=== PATIENT | male | born 1955 | race Caucasian/White ===

== ENCOUNTER → 2024-06-10 16:33 | Outpatient (REF) | payer MEDICARE, OTHER, SELFPAY | LOC: PAVMRI 16:33 | PROVIDERS: ATTENDING PHYSICIAN Physician Assistant Surgical; FAMILY PHYSICIAN Family Medicine | DX: M25.562 Pain in left knee (principal) | CPT/HCPCS: 73721 ==

== ENCOUNTER 2024-09-16 10:25 | Inpatient (IN) | payer MEDICARE, OTHER, SELFPAY ==
[2024-09-02 13:45] VITALS: BMI 35.5
[2024-09-02 14:27] LABS: Hematocrit 45.5 % (39.0-52.0); Hemoglobin 14.8 g/dL (13.0-18.0); Mean Corp Hgb Conc. 32.5 g/dL (33.0-37.0); Mean Corpuscular Hgb 28.8 pg (27.0-31.0); Mean Corpuscular Volume 88.7 fL (80.0-94.0); Mean Platelet Volume 11.2 fL (7.4-10.4); Platelet Count 213 10^3/uL (130-400); Red Blood Cell Count 5.13 10^6/uL (4.70-6.10); Red Cell Dist. Width 13.1 % (11.5-14.5); White Blood Cell Count 11.5 10^3/uL (4.8-10.8)
[2024-09-02 14:35] LABS: ALT (SGPT) 20 U/L (0-50); AST (SGOT) 17 U/L (17-59); Albumin 4.5 g/dl (3.5-5.0); Alkaline Phosphatase 69 U/L (38-126); Blood Urea Nitrogen 21 mg/dl (9-20); Calcium 9.3 mg/dl (8.4-10.2); Carbon Dioxide 31 mmol/L (22-30); Chloride 99 mmol/L (98-107); Estimated Creatinine Clearance 95 ml/min; Glucose 110 mg/dl (70-99); Potassium 4.2 mmol/L (3.5-5.1); Sodium 138 mmol/L (135-145); Total Bilirubin 0.6 mg/dl (0.2-1.3); Total Protein 6.8 g/dl (6.3-8.2); eGFR > 60.00
[2024-09-10 09:36] VITALS: BMI 35.5
[2024-09-16] VITALS (12 sets, daily range): BP systolic 114–152; BP diastolic 62–89; PULSE 59; O2SAT 100
[2024-09-16] MEDS: CELEBREX 200 MG PO (11:08)
[2024-09-16] MEDS: TYLENOL 650 MG PO ×2 (11:08→17:15)
[2024-09-16] MEDS: NORMOSOL-R/PLASMALYTE-A 1000 IV ×2 (11:26→15:44)
--- NOTE | 2024-09-16 14:29 | W.PN.UPDATE ---
Update Note
Progress Note Update
L TKA Dr. Harrison 09/16/24
DVT ppx-ASA
Agarwal's/GERD
HTN
HLD
B12 deficiency
Borderline DM
Obesity 35.5 BMI
Thoracic Aortic dissection-s/p repair 2016
--- NOTE | 2024-09-16 14:40 | W.DS.TRANS ---
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
-
Discharge Instructions:
Discharge Diagnosis/Procedures L TKA 09/16/24
Diet As tolerated,Diabetic, Carb Controlled
Activity With Walker
Driving Restrictions No driving
Bathing Restrictions OK to Shower
Other Services PT
Instructions:
Stand-Alone Forms: Total Hip/Knee Replacement D/C
Changes to Home Medications: Yes
Discharge Medications:
DC Medications w/original date entered in [employer]
omeprazole 20 mg capsule,delayed release 20 mg PO DAILY 03/08/17
atorvastatin 40 mg tablet 40 mg PO HS 09/10/24
cetirizine 10 mg tablet 10 mg PO DAILY 09/10/24
cyanocobalamin (vitamin B-12) 1,000 mcg tablet,extended release (Vitamin B-12 ER) 1,000 mcg PO DAILY 09/10/24
diphenhydramine 25 mg-acetaminophen 500 mg tablet (Tylenol PM Extra Strength) 1 tab PO HS 09/10/24
ezetimibe 10 mg tablet 10 mg PO HS 09/10/24
metoprolol succinate 25 mg tablet,extended release 24 hr 25 mg PO HS 09/10/24
Saccharomyces boulardii 250 mg capsule (Florastor) 250 mg PO BID #1 cap 09/16/24
aspirin 325 mg tablet 325 mg PO DAILY blood clot prevention #1 tab 09/16/24
cefadroxil 500 mg capsule 500 mg PO BID infection prevention #14 caps 09/16/24
dexamethasone 4 mg tablet 4 mg PO BID inflammation #6 tabs 09/16/24
docusate sodium 100 mg capsule (Colace) 100 mg PO BID stool softner #1 cap 09/16/24
magnesium hydroxide 400 mg/5 mL oral suspension (Milk of Magnesia) 30 ml PO HS PRN Constipation #1 mL 09/16/24
ondansetron 4 mg disintegrating tablet 4 mg PO Q6H PRN n/v #20 tabs 09/16/24
oxycodone 5 mg tablet 5 mg PO Q6H PRN 1 tab moderate pain, 2 tabs severe pain #30 tabs 09/16/24
sennosides 8.6 mg tablet (Senokot) 17.2 mg (2 x 8.6 mg) PO BID laxative #2 tabs 09/16/24
Home Medication Changes
Saccharomyces boulardii 250 mg capsule (Florastor) 250 mg PO BID #1 cap 09/16/24
aspirin 325 mg tablet 325 mg PO DAILY blood clot prevention #1 tab 09/16/24
cefadroxil 500 mg capsule 500 mg PO BID infection prevention #14 caps 09/16/24
dexamethasone 4 mg tablet 4 mg PO BID inflammation #6 tabs 09/16/24
docusate sodium 100 mg capsule (Colace) 100 mg PO BID stool softner #1 cap 09/16/24
magnesium hydroxide 400 mg/5 mL oral suspension (Milk of Magnesia) 30 ml PO HS PRN Constipation #1 mL 09/16/24
ondansetron 4 mg disintegrating tablet 4 mg PO Q6H PRN n/v #20 tabs 09/16/24
oxycodone 5 mg tablet 5 mg PO Q6H PRN 1 tab moderate pain, 2 tabs severe pain #30 tabs 09/16/24
sennosides 8.6 mg tablet (Senokot) 17.2 mg (2 x 8.6 mg) PO BID laxative #2 tabs 09/16/24
Pending Results: No
[2024-09-16] MEDS: ROXICODONE 5 MG PO (15:28)
--- NOTE | 2024-09-16 16:47 | PTCARENOTE ---
pt admitted to 2S room 2105 from the PACU at 1600. pt arrived awake and alert. telemetry placed and reading SB 40's. admission database and physical assessment completed as documented. pt denies pain. tolerating water and instructed to order
food. at bedside. Left knee w/marked drainage from BEARINGIZER. no further drainage noted. neurovascular check WNL. pt oriented to room, bed controls and plan of care with verbalized understanding.
[2024-09-16] MEDS: ASPIRIN 325 MG PO (17:15)
[2024-09-16] MEDS: ANCEF 5 IV (20:16)
[2024-09-16] MEDS: COLACE 100 MG PO (20:16)
[2024-09-16] MEDS: SENOKOT 17.2 MG PO (20:16)
[2024-09-16] MEDS: DECADRON 6 MG IV (20:16)
[2024-09-16] MEDS: ULTRAM 50 MG PO (20:16)
[2024-09-16] MEDS: TORADOL 15 MG IV (20:17)
[2024-09-16] MEDS: PROTONIX 40 MG PO (20:17)
[2024-09-16] MEDS: BACTROBAN 2% OINTMENT 1 APPLIC NASAL (20:18)
[2024-09-16] MEDS: TOPROL XL 25 MG PO (21:36)
[2024-09-16] MEDS: ZETIA 10 MG PO (21:37)
[2024-09-16] MEDS: BENADRYL 25 MG PO (21:37)
[2024-09-16] MEDS: NEURONTIN 300 MG PO (21:37)
[2024-09-16] MEDS: TYLENOL 500 MG PO (21:37)
[2024-09-16] MEDS: TYLENOL PO (21:37)
[2024-09-16] MEDS: LIPITOR 40 MG PO (21:38)
[2024-09-17 03:10] VITALS: BP 131/62
[2024-09-17 03:36] VITALS: BP 131/62
[2024-09-17] MEDS: ANCEF 5 IV (04:29)
[2024-09-17 07:28] VITALS: BP 150/80
[2024-09-17] MEDS: ASPIRIN 325 MG PO (08:52)
[2024-09-17] MEDS: SENOKOT 17.2 MG PO (08:52)
[2024-09-17] MEDS: BACTROBAN 2% OINTMENT 1 APPLIC NASAL (08:52)
[2024-09-17] MEDS: COLACE 100 MG PO (08:52)
[2024-09-17] MEDS: TYLENOL 650 MG PO (08:52)
[2024-09-17] MEDS: ULTRAM 50 MG PO (08:53)
[2024-09-17] MEDS: PROTONIX 40 MG PO (08:53)
[2024-09-17] MEDS: TORADOL 15 MG IV (08:53)
[2024-09-17] MEDS: DECADRON 6 MG IV (08:54)
--- NOTE | 2024-09-17 10:41 | W.PN.ORTHO ---
Today's Communication / Plan
-
d/c
Assessment
.
Distal Motor Intact: Yes
Dressing:
Clean, dry and intact.
Assessment:
Agarwal's/GERD
HTN
HLD
B12 deficiency
Borderline DM
Obesity 35.5 BMI
Thoracic Aortic dissection-s/p repair 2016
Plan
.
Surgery / Date: Minerva Harrison 09/16/24
DVT Prophylaxis: Aspirin
Activity:
Out of bed.
PT/OT
Discharge Plan: Home w/ Outpatient PT
Subjective
.
.:
Patient resting comfortably.
Vital Signs and Labs
.
Vital Signs and Labs:
Lab Results
09/02/24 13:29
09/02/24 13:29
Temp Pulse Resp BP Pulse Ox
97.7 F 70 18 150/80 97
09/17/24 07:28 09/17/24 07:28 09/17/24 07:28 09/17/24 07:28 09/17/24 07:28
Non-invasive Hgb result: 11.9
Physical Exam
-
HEENT: No pallor, cyanosis, or jaundice. Throat clear.
NECK: Supple. No JVD.
RESPIRATORY: Lungs clear to auscultation.
CVS: S1, S2 normal. RRR.� No murmur, rub or gallop.
ABDOMEN: Soft, non-tender. No distension. BS+/normal.
EXTREMITIES: strength equal, no calf pain with palpation
AIR POLLUTION AUDITOR: AOx3. No focal deficits. visual aid expert grossly intact
--- NOTE | 2024-09-17 11:03 | CM ---
Met with pt at bedside
Pt reports he lives with his in a bi-level home; 3 steps to enter; 8 steps to 2nd fl. + 1/2 bath on FF
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
DME - rolling walker, single point cane, raised toilet, toilet rails, shower rails
SNF - denies past hx
HH - has had in past - poss [facility]
Has ride at discharge
PCP - Rodrigo Painter
Pharm - [facility]
Has outpatient PT appt scheduled for tomorrow 09/[address] Harrison office on [address] Has Rx and transportation
Given IMM
Plan - home with outpatient PT
[2024-09-17 11:05] VITALS: BP 116/58
== END 2024-09-17 13:20 | disposition home or self-care (01) | DRG 470 ==
LOC: 2 SOUTH 10:25
PROVIDERS: ADMITTING PHYSICIAN Specialist; FAMILY PHYSICIAN Family Medicine; REFERRING PHYSICIAN Internal Medicine Cardiovascular Disease
PROC: 0SRD0J9 Replacement of Left Knee Joint with Synthetic Substitute, Cemented, Open Approach (ICD-10-PCS; 2024-09-16)
DX: M17.12 Unilateral primary osteoarthritis, left knee (principal); E53.8 Deficiency of other specified B group vitamins; E66.9 Obesity, unspecified; E78.5 Hyperlipidemia, unspecified; K21.9 Gastro-esophageal reflux disease without esophagitis; K22.70 Barrett's esophagus without dysplasia; I10 Essential (primary) hypertension; R73.03 Prediabetes; J45.909 Unspecified asthma, uncomplicated; K44.9 Diaphragmatic hernia without obstruction or gangrene; Z68.36 Body mass index [BMI] 36.0-36.9, adult; Z86.79 Personal history of other diseases of the circulatory system; Z87.19 Personal history of other diseases of the digestive system; Z88.0 Allergy status to penicillin; Z88.8 Allergy status to other drugs, medicaments and biological substances; Z91.041 Radiographic dye allergy status
CPT/HCPCS: 36415; 73560; 80053; 83036; 85027; 87070; 97110; 97116; 97162; 97166; 97530; 97535; C1713; C1776